=== PATIENT | female | born 1975 | race Caucasian/White ===

== ENCOUNTER → 2016-12-04 | Outpatient (CLI) | payer OTHER ==
--- NOTE | ~2016-12-04 | MY11 ---
[facility] A Service of [facility] / [facility] RADIOLOGY TEXT RESULTS PATIENT: MICHELLE WINTER LOCATION: [facility] : 77 UNIT #: [id number] AGE: [address]: MIRIAM ABREU APRN SEX: F ORDER DR: [id number] [facility] [address] [place], [place] [address] [id number] MR#: [id number] Acc #: [id number] NAME: MICHELLE WINTER : 1975 SEX: F STUDY DATE/TIME: 12/04/2016 15:47 UNIT: [facility] ROOM: STUDY DESCRIPTION: MY Mammogram Screening Dig Massimo Attending Physician: Miriam Abreu Aprn Referring Physician: Miriam Abreu Aprn Ordering Physician: Miriam Abreu Aprn Primary Care Physician: Miriam Abreu Aprn MEDICAL IMAGING REPORT This report is preliminary unless electronic signature is present EXAM Bilateral digital screening mammogram with CAD, 12/04/2016 HISTORY 41-year-old female with family history of breast cancer in an aunt. No personal history of breast cancer or current complaints. COMPARISON None. This is patient's baseline screening study. FINDINGS CC and MLO views were obtained of each breast utilizing digital technique and reviewed with an FDA-approved CAD device. Scattered fibroglandular densities are present bilaterally. No focal suspicious nodule, architectural distortion or clustered microcalcification is seen. IMPRESSION Negative screening mammogram. Routine screening mammogram is recommended in 1 year. Patients over the age of 40 are entered into a reminder system with target due date for the next mammogram. A result letter will also be sent to the patient. BIRADS: 1 Negative Dictated by... Chary Nails M.D. THIS IS AN ELECTRONICALLY VERIFIED REPORT Chary Nails M.D. at 12/06/2016 7:02 AM [facility] A Service of [facility] / [facility] RADIOLOGY TEXT RESULTS PATIENT: MICHELLE WINTER LOCATION: [facility] : 77 UNIT #: [id number] AGE: [address]: MIRIAM ABREU APRN SEX: F ORDER DR: RAFA/jose TD: 12/05/2016 11:14 JOB #: [id number] MEDICAL IMAGING REPORT Page 1 of 1 COPY
== END | disposition home or self-care (01) ==
LOC: CWCC 15:14
DX: Z12.31 Encounter for screening mammogram for malignant neoplasm of breast (principal); Z80.3 Family history of malignant neoplasm of breast
CPT/HCPCS: G0202